=== PATIENT | female | born 1990 | race Caucasian/White ===

== ENCOUNTER 2019-11-16 08:41 | Outpatient (CLI) | payer MEDICAID, SELFPAY ==
[2019-11-16 09:26] LABS: Thyroid Stimulating Hormone 2.04 uIU/mL (0.27-4.20)
== END 2019-11-16 08:42 | disposition home or self-care (01) ==
LOC: LAB 08:44
PROVIDERS: Family Provider Nurse Practitioner; PCP Nurse Practitioner; Visit Provider Nurse Practitioner
DX: E04.1 Nontoxic single thyroid nodule (principal)
CPT/HCPCS: 36415; 84443

== ENCOUNTER 2019-11-26 12:16 | Outpatient (CLI) | payer MEDICAID, SELFPAY ==
[2019-11-26 12:46] LABS: Alanine Aminotransferase 14 U/L (0-33); Albumin Level 4.3 g/dL (3.5-5.2); Alkaline Phosphatase 76 IU/L (35-105); Anion Gap 12.2 (5-19); Aspartate Amino Transferase 15 U/L (0-32); Blood Urea Nitrogen 12 mg/dL (6-20); Calcium 9.8 mg/dL (8.5-10.5); Carbon Dioxide 27 mmol/L (22-29); Chloride 102 mmol/L (98-107); Globulin 2.9 g/dL (1.3-4.6); Glomerular Filtration Rate 83.7 mL/min (90-130); Glucose 102 mg/dL (65-115); Potassium 4.2 mmol/L (3.5-5.1); Sodium 137 mmol/L (136-145); Total Bilirubin 0.4 mg/dL (0.15-1.2); Total Protein 7.2 g/dL (6.6-8.7)
== END 2019-11-26 12:17 | disposition home or self-care (01) ==
LOC: LAB 12:18
PROVIDERS: Family Provider Nurse Practitioner; PCP Nurse Practitioner; Visit Provider Nurse Practitioner
DX: E03.9 Hypothyroidism, unspecified (principal)
CPT/HCPCS: 36415; 80053

== ENCOUNTER → 2019-12-10 08:24 | Outpatient (BNVA) | payer MEDICAID, SELFPAY | PROVIDERS: Family Provider Nurse Practitioner; PCP Nurse Practitioner; Visit Provider Specialist | DX: G43.711 Chronic migraine without aura, intractable, with status migrainosus (principal) | CPT/HCPCS: 99203; 99213 ==

== ENCOUNTER 2020-01-20 08:16 | Outpatient (CLI) | payer MEDICAID, SELFPAY ==
[2020-01-20 08:54] LABS: Alanine Aminotransferase 16 U/L (0-33); Albumin Level 4.3 g/dL (3.5-5.2); Alkaline Phosphatase 68 IU/L (35-105); Anion Gap 13.5 (5-19); Aspartate Amino Transferase 18 U/L (0-32); Blood Urea Nitrogen 16 mg/dL (6-20); Calcium 10.2 mg/dL (8.5-10.5); Carbon Dioxide 25 mmol/L (22-29); Chloride 100 mmol/L (98-107); Globulin 2.7 g/dL (1.3-4.6); Glomerular Filtration Rate 64.7 mL/min (90-130); Glucose 110 mg/dL (65-115); Osmolality Calculated 275 mOsm/kg (285-295); Potassium 4.5 mmol/L (3.5-5.1); Sodium 134 mmol/L (136-145); Thyroid Stimulating Hormone 1.27 uIU/mL (0.27-4.20); Total Bilirubin 0.3 mg/dL (0.15-1.2)
== END 2020-01-20 08:17 | disposition home or self-care (01) ==
LOC: LAB 08:20
PROVIDERS: Family Provider Nurse Practitioner; PCP Nurse Practitioner; Visit Provider Nurse Practitioner
DX: E06.9 Thyroiditis, unspecified (principal)
CPT/HCPCS: 36415; 80053; 84443

== ENCOUNTER 2020-04-01 08:01 | Outpatient (CLI) | payer MEDICAID, SELFPAY ==
--- NOTE | 2020-04-01 08:13 | US_ITS ---
WS: [id number] THYROID ULTRASOUND HISTORY: THYROID CYST COMPARISON: 09/08/2019, 04/07/2014 Right lobe: 5.6 cm x 2.3 cm x 2.1 cm. Volume: 14.1 cm3. Slightly enlarged thyroid. No solid mass. Colloid cyst in the superior pole measures 7 x 4 x 6 mm. Si milar in size as compared to the prior study. Left lobe: 4.7 cm x 1.8 cm x 1.5 cm. Volume: 6.6 cm3. Normal size and echotexture. No significant or dominant nodules are present. Isthmus: 0.4 cm. US/US thyroid [id number] IMPRESSION: 1. Minimally enlarged and elongated RIGHT thyroid lobe. 2. Benign colloid cyst upper pole RIGHT thyroid.
== END 2020-04-01 08:02 | disposition home or self-care (01) ==
LOC: RAD 08:05
PROVIDERS: PCP Nurse Practitioner; Visit Provider Nurse Practitioner
DX: E04.1 Nontoxic single thyroid nodule (principal); E04.9 Nontoxic goiter, unspecified
CPT/HCPCS: 76536

== ENCOUNTER → 2022-07-31 15:44 | Outpatient (BNVA) | payer BC, MEDICAID, SELFPAY | PROVIDERS: PCP Family Medicine; Visit Provider Nurse Practitioner | DX: Z12.4 Encounter for screening for malignant neoplasm of cervix (principal) | CPT/HCPCS: 88175 ==

== ENCOUNTER 2023-09-02 09:26 | Outpatient (CLI) | payer BC, MEDICAID, SELFPAY ==
--- NOTE | 2023-09-02 09:45 | USCV_ITS ---
KuldipAna Age: 33 Gender: F : 1990 Exam Date: 09/02/2023 09:46 Ordering Phys: Dwayne Telles Technologist: CT Exam Location: [facility] – [place]_ Indication: murmur BP: 110 / 70 HR: 65 Rhythm: Sinus Technical Quality: Adequate MEASUREMENTS (Male / Female) Normal Values 2D ECHO LV Chamber Size 4.8 cm RV Chamber Size 3.7 cm LVOT Diameter 2.1 cm LV Ejection Fraction MOD 2C 53.0 % LV Ejection Fraction 2C AL 52.5 % LA Diameter 3.6 cm LA Width 3.8 cm LA Height 5.4 cm RA Width 4.2 cm RA Height 4.5 cm Aorta at Sinotubular Diameter 2.4 cm IVC Diameter 1.4 cm M-MODE Aortic Annulus Diameter 2.9 cm LA Ao Ratio MM 1.5 MV E Point Septal Separation 0.6 cm DOPPLER AV Peak Velocity 129.0 cm/s MV Peak Velocity 90.0 cm/s MV E' Velocity 13.0 cm/s TR Peak Velocity 147.0 cm/s TR Peak Gradient 8.6 mmHg TV Peak E Velocity 88.0 cm/s Right Atrial Pressure 3.0 mmHg Pulmonary Artery Systolic Pressu 11.6 mmHg PV Peak Velocity 78.0 cm/s FINDINGS Left Ventricle Normal left ventricular size and systolic function, EF 67 %. No regional wall motion abnormalities. Right Ventricle Normal right ventricular size and systolic function. Right Atrium The right atrium is normal in size. Left Atrium The left atrium is normal in size. Mitral Valve No gross abnormalities noted Aortic Valve Appears to be tricuspid with no morphology abnormalities Tricuspid Valve Trace of tricuspid regurgitation Pulmonic Valve No abnormalities noted Pericardium Normal pericardium without effusion. Aorta Normal ascending aorta dimension. IVC The inferior vena cava appears normal. CONCLUSIONS Normal left ventricular size and systolic function, EF 67 %. No regional wall motion abnormalities. No gross valvular abnormalities noted Trace of tricuspid regurgitation No intracardiac shunts by color-flow Doppler examination There is no pericardial effusion. Dr Gage Agrawal MD [facility] (Electronically Signed) Final Date: 04 September 2023 23:00 S
== END 2023-09-02 09:27 | disposition home or self-care (01) ==
PROVIDERS: PCP Family Medicine; Visit Provider Nurse Practitioner
DX: R01.1 Cardiac murmur, unspecified (principal)
CPT/HCPCS: 93306

== ENCOUNTER 2023-09-02 09:28 | Outpatient (CLI) | payer BC, MEDICAID, SELFPAY ==
--- NOTE | 2023-09-02 10:07 | MM_ITS ---
WS: [id number] VIEWS: MLO and CC views both breasts. 3D digital tomosynthesis is also included in this exam. No previous exams Findings: There was no sign of mass, architectural distortion or suspicious calcification in either breast. The re are scattered areas of fibroglandular density Impression: MM/[place] [id number] BI-RADS: 2-Benign finding FOLLOW-UP: 1 Year Follow-up This mammogram was also analyzed by the Computer Aided Detection System [employer].
== END 2023-09-02 09:29 | disposition home or self-care (01) ==
LOC: RAD 09:28
PROVIDERS: PCP Family Medicine; Visit Provider Nurse Practitioner
DX: Z12.31 Encounter for screening mammogram for malignant neoplasm of breast (principal)
CPT/HCPCS: 77063; 77067

== ENCOUNTER 2023-10-02 14:10 | Outpatient (CLI) | payer BC, MEDICAID, SELFPAY ==
[2023-10-02 15:02] LABS: Free T4 Free Thyroxine 1.23 ng/dL (0.82-1.77); T3 Free 3.5 PG/ML (2.0-4.4); Thyroid Stimulating Hormone 0.49 uIU/mL (0.27-4.20)
== END 2023-10-02 14:11 | disposition home or self-care (01) ==
LOC: LAB 14:10
PROVIDERS: PCP Nurse Practitioner; Visit Provider Nurse Practitioner
DX: E03.9 Hypothyroidism, unspecified (principal)
CPT/HCPCS: 36415; 84439; 84443; 84481

== ENCOUNTER 2023-10-29 08:57 | Outpatient (CLI) | payer BC, MEDICAID, SELFPAY ==
[2023-10-29 10:15] LABS: Free T4 Free Thyroxine 1.07 ng/dL (0.82-1.77); T3 Free 4.3 PG/ML (2.0-4.4); Thyroid Stimulating Hormone 1.58 uIU/mL (0.27-4.20)
== END 2023-10-29 08:58 | disposition home or self-care (01) ==
LOC: LAB 08:57
PROVIDERS: PCP Nurse Practitioner; Visit Provider Nurse Practitioner
DX: E03.9 Hypothyroidism, unspecified (principal)
CPT/HCPCS: 36415; 84439; 84443; 84481

== ENCOUNTER → 2025-07-26 11:13 | Outpatient (BNVA) | payer BC, MEDICAID, SELFPAY | PROVIDERS: PCP Nurse Practitioner; Visit Provider Nurse Practitioner | DX: Z12.4 Encounter for screening for malignant neoplasm of cervix (principal) | CPT/HCPCS: 88175 ==